=== PATIENT | female | born 2000 | race Caucasian/White ===

== ENCOUNTER 2024-01-26 06:36 | Outpatient (REF) | payer OTHER, SELFPAY ==
--- NOTE | ~2024-01-26 | US_ITS ---
EXAMINATION: US PELVIS CLINICAL INFORMATION: Follow-up left ovarian cyst COMPARISON: None available. TECHNIQUE: Ultrasound of the pelvis is performed using both transabdominal and transvaginal transducers along with Doppler. Transvaginal imaging is performed due to inadequate visualization transabdominally. FINDINGS: Uterus: The uterus is anteverted and measures 7.0 x 3.1 x 3.8 cm. The double wall endometrial thickness is 7 mm. The uterus is smooth in contour and has normal myometrial echogenicity. No visible fibroid. Adnexa: Both ovaries are visualized. There is normal color flow to the adnexa. There is no ovarian torsion. There is no pelvic ascites or fluid collection. Right ovary measures 2.7 x 2.3 x 2.2 cm for a volume of 7.2 mL. Left ovary measures 1.8 x 1.5 x 1.8 cm for a volume of 2.5 mL. US/US pelvic and transvaginal IMPRESSION: Normal pelvic ultrasound. If a left ovarian cyst had been present previously, it is no longer seen. Electronically signed by: Dav Lieberman MD 01/26/2024 03:07 PM EDT
== END 2024-01-26 06:37 | disposition home or self-care (01) ==
LOC: HO.UMASIMG 06:36
PROVIDERS: Visit Provider Nurse Practitioner Women's Health
DX: R10.2 Pelvic and perineal pain (principal)
CPT/HCPCS: 76830; 76856